=== PATIENT | male | born 1945 | race Caucasian/White ===

== ENCOUNTER 2017-04-15 06:07 | Observation (INO) ==
--- NOTE | 2017-04-15 06:42 | Emergency Department Note ---
Disposition Clinical Impression: Acute electrocardiogram changes Chest pain Qualifiers: Chest pain type: unspecified Qualified Code(s): R07.9 - Chest pain, unspecified Disposition: Admitted As Inpatient Condition: Fair Chest Pain HPI - General Chief Complaint: ED Shortness of Breath/Dyspnea Stated Complaint: CP/SOB Time Seen by Provider: 04/15/17 06:32 Source: patient, family Mode of arrival: private vehicle Limitations: no limitations Vital Signs Reviewed: Yes Nursing Notes Reviewed: Yes - History of Present Illness HPI Narrative: Patient awoke around 5am with L sided chest pressure and shortness of breath. Pain radiates into L shoulder. He took a baby aspirin, but the pain did not improve. He had a similar episode lasting about 30 mins last week, and saw his PCP for this 2 days ago. Per patient, he had an "abnormal" EKG in her office, and is set up to see ticket sorter Dr. Jones tomorrow at 10:10am. He has had a prior stress test around 1995. 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 Acidophilus/Pectin, [place] 1 cap PO DAILY 05/26/16 04/15/17 [Acidophilus Probiotic Capsule] Lisinopril [Zestril] 10 mg PO DAILY 05/26/16 04/15/17 Metformin HCl [Glucophage] 1,000 mg PO BID 05/26/16 04/15/17 Multivitamin [Multi-Day Vitamins] 1 tab PO DAILY 05/26/16 04/15/17 Simvastatin [Zocor] 20 mg PO HS 05/26/16 04/15/17 Cyanocobalamin (Vitamin B-12) 1,000 mcg PO MOWEFR 04/15/17 04/15/17 [Vitamin B12] Glimepiride [Amaryl] 0.5 mg PO BID 04/15/17 04/15/17 Allergies Allergy/AdvReac Type Severity Reaction Status Date / Time No Known Allergies Allergy Verified 11/30/15 04:32 All systems ED: reviewed and negative except as stated. Chest Pain PMH - Past Medical History Medical history: Reports: arthritis, diabetes, GERD, hyperlipidemia, hypertension Surgical history: Reports: cholecystectomy, herniorrhaphy Psychiatric history: Reports: no psych history - Social History Smoking Status: Never smoker Alcohol use: Reports: none Drug use: Reports: none Physical Exam - General Limitations: no limitations General appearance: alert, in no apparent distress - Head Head exam: atraumatic, normocephalic, normal inspection - Eye Eye exam: Present: normal appearance, PERRL, EOMI - Neck Neck exam: Present: normal inspection, full ROM, trachea midline - Respiratory Respiratory exam: Present: normal lung sounds bilaterally. Absent: respiratory distress - Cardiovascular Cardiovascular exam: Present: regular rate, normal rhythm, normal heart sounds - Extremities Exam Extremities exam: Present: normal inspection. Absent: pedal edema - Neurological Exam Neurological exam: Present: alert, oriented X3 - Psychiatric Psychiatric exam: Present: normal affect, normal mood - Skin Skin exam: Present: warm, dry, intact, normal color Course Course Narrative: 0730: New RBBB on EKG, otherwise normal workup. Chest pain now 3/10, improved SOB. Case discussed with on-call ticket sorter Dr. Bocanegra. Patient has an appt with Dr. Joens tomorrow morning, hospital is currently full. Advised to recheck trop in 6-8 hours and consult on-call cardiology at that time. Patient updated. Repeat trop 0.00. Consulted with Dr. Wilks, on-call ticket sorter who recommended admitting the patient. Case discussed with hospitalist, who accepted patient. Vital Signs Temperature 97.7 F 04/15/17 06:08 Pulse Rate 61 04/15/17 06:08 Respiratory Rate 18 04/15/17 06:08 Blood Pressure 168/111 04/15/17 06:08 O2 Sat by Pulse Oximetry 98 04/15/17 06:08 Temperature 97.7 F 04/15/17 06:08 Pulse Rate 61 04/15/17 14:15 Respiratory Rate 18 04/15/17 15:36 Blood Pressure 129/83 04/15/17 15:36 O2 Sat by Pulse Oximetry 96 04/15/17 14:15 Oxygen Delivery Oxygen Delivery Room Air Chest Pain - Lab Data Result diagrams: 04/15/17 06:30 04/15/17 06:30 Lab Results 04/15/17 04/15/17 04/15/17 Range/Units 06:30 06:30 06:30 WBC 6.4 (4.3-11.1) K/mcL RBC 4.37 (4.19-5.50) M/mcL Hgb 14.4 (12.9-16.9) g/dL Hct 41.6 (37.5-50.1) % MCV 95.2 (83.0-100.0) fL MCH 33.0 (28.0-33.3) pg MCHC 34.6 (31.6-35.5) g/dL RDW 12.5 (11.5-14.5) % Plt Count 228 (140-400) K/mcL MPV 9.1 L (9.4-12.4) fL Immature Gran % 0.3 (0-4) % Seg Neutrophils % 48.2 % Lymphocytes % 37.8 % Monocytes % 8.3 % Eosinophils % 4.6 % Basophils % 0.8 % Neutrophils # 3.1 (1.6-8.9) K/mcL Lymphocytes # 2.4 (0.6-4.6) K/mcL Monocytes # 0.5 (0.0-1.3) K/mcL Eosinophils # 0.3 (0.0-0.6) K/mcL Basophils # 0.1 (0.0-0.2) K/mcL PT 11.3 (9.4-12.1) Seconds INR 1.1 APTT 31.3 (26.0-36.0) Seconds Sodium 137 (136-145) mEq/L Potassium 4.3 (3.5-4.5) mEq/L Chloride 105 (98-109) mEq/L Carbon Dioxide 22 (19-29) mEq/L BUN 13 (8-26) mg/dL Creatinine 0.83 (0.72-1.25) mg/dL Est GFR ( Amer) > 60 (> 60) Est GFR (Non-Af Amer) > 60 (> 60) BUN/Creatinine Ratio 16 (6-26) Glucose 160 H (70-99) mg/dL POC Glucose (58-89) Calculated Osmolality 288 (280-300) Calcium 9.3 (8.6-10.8) mg/dL Troponin I (0-0.03) ng/mL B-Natriuretic Peptide (0-100) pg/mL 04/15/17 04/15/17 04/15/17 Range/Units 06:30 06:30 12:37 WBC (4.3-11.1) K/mcL RBC (4.19-5.50) M/mcL Hgb (12.9-16.9) g/dL Hct (37.5-50.1) % MCV (83.0-100.0) fL MCH (28.0-33.3) pg MCHC (31.6-35.5) g/dL RDW (11.5-14.5) % Plt Count (140-400) K/mcL MPV (9.4-12.4) fL Immature Gran % (0-4) % Seg Neutrophils % % Lymphocytes % % Monocytes % % Eosinophils % % Basophils % % Neutrophils # (1.6-8.9) K/mcL Lymphocytes # (0.6-4.6) K/mcL Monocytes # (0.0-1.3) K/mcL Eosinophils # (0.0-0.6) K/mcL Basophils # (0.0-0.2) K/mcL PT (9.4-12.1) Seconds INR APTT (26.0-36.0) Seconds Sodium (136-145) mEq/L Potassium (3.5-4.5) mEq/L Chloride (98-109) mEq/L Carbon Dioxide (19-29) mEq/L BUN (8-26) mg/dL Creatinine (0.72-1.25) mg/dL Est GFR ( Amer) (> 60) Est GFR (Non-Af Amer) (> 60) BUN/Creatinine Ratio (6-26) Glucose (70-99) mg/dL POC Glucose (58-89) Calculated Osmolality (280-300) Calcium (8.6-10.8) mg/dL Troponin I 0.00 0.00 (0-0.03) ng/mL B-Natriuretic Peptide < 10 (0-100) pg/mL 04/15/17 Range/Units 14:27 WBC (4.3-11.1) K/mcL RBC (4.19-5.50) M/mcL Hgb (12.9-16.9) g/dL Hct (37.5-50.1) % MCV (83.0-100.0) fL MCH (28.0-33.3) pg MCHC (31.6-35.5) g/dL RDW (11.5-14.5) % Plt Count (140-400) K/mcL MPV (9.4-12.4) fL Immature Gran % (0-4) % Seg Neutrophils % % Lymphocytes % % Monocytes % % Eosinophils % % Basophils % % Neutrophils # (1.6-8.9) K/mcL Lymphocytes # (0.6-4.6) K/mcL Monocytes # (0.0-1.3) K/mcL Eosinophils # (0.0-0.6) K/mcL Basophils # (0.0-0.2) K/mcL PT (9.4-12.1) Seconds INR APTT (26.0-36.0) Seconds Sodium (136-145) mEq/L Potassium (3.5-4.5) mEq/L Chloride (98-109) mEq/L Carbon Dioxide (19-29) mEq/L BUN (8-26) mg/dL Creatinine (0.72-1.25) mg/dL Est GFR ( Amer) (> 60) Est GFR (Non-Af Amer) (> 60) BUN/Creatinine Ratio (6-26) Glucose (70-99) mg/dL POC Glucose 160 H (58-89) Calculated Osmolality (280-300) Calcium (8.6-10.8) mg/dL Troponin I (0-0.03) ng/mL B-Natriuretic Peptide (0-100) pg/mL - EKG Data EKG shows normal: sinus rhythm Rate: normal (62) Rhythm: NSR Bag[place]/QRS: RBBB When compared to previous EKG there are: changes noted
[2017-04-15 06:52] LABS: Basophils # 0.1 K/mcL (0.0-0.2); Basophils % 0.8 %; Eosinophils # 0.3 K/mcL (0.0-0.6); Eosinophils % 4.6 %; Hematocrit 41.6 % (37.5-50.1); Hemoglobin 14.4 g/dL (12.9-16.9); Immature Granulocytes % 0.3 % (0-4); Lymphocytes # 2.4 K/mcL (0.6-4.6); Lymphocytes % 37.8 %; Mean Corpuscular HGB Conc 34.6 g/dL (31.6-35.5); Mean Corpuscular Volume 95.2 fL (83.0-100.0); Mean Platelet Volume 9.1 fL (9.4-12.4); Monocytes # 0.5 K/mcL (0.0-1.3); Monocytes % 8.3 %; Neutrophils # 3.1 K/mcL (1.6-8.9); Platelet Count 228 K/mcL (140-400); Red Blood Count 4.37 M/mcL (4.19-5.50); Red Cell Distribution Width 12.5 % (11.5-14.5); Segmented Neutrophils % 48.2 %
[2017-04-15] MEDS ORDERED: Aspirin 81 MG TAB.CHEW PO ONE (06:53)
[2017-04-15 06:58] LABS: INR 1.1; Prothrombin Time 11.3 Seconds (9.4-12.1)
[2017-04-15 07:01] LABS: Activated Partial Thrombo Time 31.3 Seconds (26.0-36.0)
[2017-04-15 07:08] LABS: BUN/Creatinine Ratio 16 (6-26); Blood Urea Nitrogen 13 mg/dL (8-26); Calcium 9.3 mg/dL (8.6-10.8); Carbon Dioxide 22 mEq/L (19-29); Chloride 105 mEq/L (98-109); Glucose 160 mg/dL (70-99); Osmolality,Calculated 288 (280-300); Potassium 4.3 mEq/L (3.5-4.5); Sodium 137 mEq/L (136-145); eGFR For African Americans > 60 (> 60); eGFR For Non-African Americans > 60 (> 60)
--- NOTE | 2017-04-15 13:30 | Emergency Department Note ---
START Narrative - START START: For this encounter, I have reviewed the PRINTING PRESS OPERATOR or PA documentation, treatment plan, and medical decision making; and I have had face to face time with this patient. 71yo M here for chest pain. supposed to see cardiology tomorrow. presents to ER for chest pain overnight. cardiology has been consulted. pt was supposed to see them tomorrow but they would prefer pt to be admitted now due to ekg and story. pt ok with this plan asa given vss
[2017-04-15] MEDS ORDERED: *HR* HYDROcodone/Acet 5/325 mg TABLET PO PRN (17:08)
[2017-04-15] MEDS ORDERED: Naloxone 0.4 MG/ML INJ IVP PRN (17:08)
[2017-04-15] MEDS ORDERED: Acetaminophen 325 MG TABLET PO PRN (17:08)
[2017-04-15] MEDS ORDERED: Ondansetron 4 MG/2 ML VIAL IVP PRN (17:08)
[2017-04-15] MEDS ORDERED: *HR* Morphine 2 MG/ML SYRINGE IVP PRN (17:08)
[2017-04-15] MEDS ORDERED: Cyanocobalamin (B-12) 1,000 MCG TABLET PO SCH (17:15)
--- NOTE | 2017-04-15 17:28 | Internal Med History&Physical ---
<Chris Strong R - Last Filed: 04/15/17 18:42> Date of Encounter: 04/15/17 Internal Medicine - H&P: HPI History of present illness: Mr. Patterson is a 71 year old male Internal Medicine - H&P: Meds Aspirin 81 mg PO DAILY 05/26/16 [History] Cholecalciferol (D-3) [Vitamin D] 5,000 unit PO DAILY 05/26/16 [History] L. Acidophilus/Pectin, [place] [Acidophilus Probiotic Capsule] 1 cap PO DAILY [History] Lisinopril [Zestril] 10 mg PO DAILY 05/26/16 [History] Metformin HCl [Glucophage] 1,000 mg PO BID 05/26/16 [History] Multivitamin [Multi-Day Vitamins] 1 tab PO DAILY 05/26/16 [History] Simvastatin [Zocor] 20 mg PO HS 05/26/16 [History] Cyanocobalamin (Vitamin B-12) [Vitamin B12] 1,000 mcg PO MOWEFR 04/15/17 [ History] Glimepiride [Amaryl] 0.5 mg PO BID 04/15/17 [History] 3 Allergy/AdvReac Type Severity Reaction Status Date / Time No Known Allergies Allergy Verified 11/30/15 04:32 All Systems PM: A 10-system review of systems was performed and is negative for pertinent findings except as documented above in the HPI. - Constitutional Vitals: Temp Pulse Resp BP Pulse Ox 97.7 F 61 18 129/83 96 04/15/17 06:08 04/15/17 14:15 04/15/17 15:36 04/15/17 15:36 04/15/17 14:15 Internal Med - H&P Results - Labs CBC & Chem 7: 04/15/17 06:30 04/15/17 06:30 - Attending Attestation I personally interviewed and examined this pt. I agree with the findings, assessment ad plan of HARIS Mckeon. Pt currently pain free. Continue to trend trops. Cardiology eval pending. I discussed the case with pt and family at bedside. <Junito Mckeon - Last Filed: 04/16/17 10:21> Date of Encounter: 04/16/17 Time of Encounter: 16:00 Assessment and Plan (1) Chest pain Current visit: Yes Status: Acute Patient presents with chest pain that he reports began last as a chest tightness. Patient was then seen by PCP and had EKG done which they ruled as abnormal. Patient presented to the ED today when pain became worse and presented as pressure across his chest that radiated to his left shoulder. Patient states he has never had this before. Patient was to see Dr. Jones in cardiology tomorrow. He reports his last stress test was in 1995. Patient's EKG today shows sinus rhythm with right bundle branch block and left anterior fascicular block. Initial troponin 0.00. Patient's current risk factors include diabetes, HLD, and HTN. Echocardiogram ordered. Patient to be placed on continuous cardiac telemetry with troponins to be trended x2. Nitroglycerin SL PRN. Will continue aspirin therapy, HTN, and HLD medications. Patient not currently anticoagulated with exception of aspirin. Cardiology consult ordered and discussed with Dr. Gagnon. Patient to be monitored closely for increasing cardiac and/or respiratory distress. Qualifiers: Chest pain type: other chest pain Qualified Code(s): R07.89 - Other chest pain; R07.8 - Other chest pain (2) SOB (shortness of breath) Current visit: Yes Status: Acute Patient presents with reported acute shortness of breath associated with chest pain. Patient denies any use of oxygen and states that SOB is transient. Patient placed on supplemental O2 with titration if SPO2 less than 92% and continuous SPO2 monitoring. (3) Diabetes Current visit: Yes Status: Chronic Patient presents with history of chronic diabetes controlled by oral anti- hyperglycemic medications. Will hold patient's oral medications and administer low-dose correction insulin sliding scale with hypoglycemia protocol. Blood glucose monitoring ACHS. A1c ordered. Qualifiers: Diabetes mellitus type: type 2 Diabetes mellitus complication status: without complication Diabetes mellitus residential insulin use: without residential use Qualified Code(s): E11.9 - Type 2 diabetes mellitus without complications (4) GERD (gastroesophageal reflux disease) Current visit: Yes Status: Chronic Patient presents with history of chronic GERD. IVP Zofran Q6 PRN and IVP 40 mg daily ordered. Qualifiers: Esophagitis presence: esophagitis presence not specified Qualified Code(s) : K21.9 - Gastro-esophageal reflux disease without esophagitis (5) HLD (hyperlipidemia) Current visit: Yes Status: Chronic Patient presents with history of chronic hyperlipidemia. Lipid panel ordered and we will continue patient's Zocor. Qualifiers: Hyperlipidemia type: pure hypercholesterolemia Qualified Code(s): E78.00 - Pure hypercholesterolemia, unspecified; E78.0 - Pure hypercholesterolemia (6) HTN (hypertension) Current visit: Yes Status: Chronic Patient presents with history of chronic hypertension. Will monitor patient's vital signs and continue patient's lisinopril. Qualifiers: Hypertension type: essential hypertension Qualified Code(s): I10 - Essential (primary) hypertension (7) DVT prophylaxis Current visit: Yes Status: Acute Patient to be placed on DVT prophylaxis due to current admission protocol and bed rest status. Heparin 5,000 units SQ Q8 ordered. Internal Medicine - H&P: HPI Chief complaint: Chest pain Admitted From: Emergency Dept Plans for Post Hospital Care: Home History of present illness: Mr. Patterson is a 71 year old male with medical history of arthritis, diabetes controlled by oral antihyperglycemic medications, GERD, hyperlipidemia, and hypertension presents from the ED with chief complaint of chest pain and shortness of breath that began last . Patient describes pain as chest tightness across his chest. Patient was seen by PCP on Thursday and given an EKG which was ruled as abnormal. Patient was due to see cardiology tomorrow but presented to ED today due to increasing chest pain. Patient reports pain radiates to left shoulder. Patient reports this has never happened before and he denies previous cardiac events. Mr. Patterson reports he was a former smoker smoking 1 pack per day but quit 47 years ago. On admission to ED today patient' s vital signs included temperature of 97.7F, heart rate of 61 bpm, respiratory rate of 18, BP of 168/111, SPO2 of 98% on room air. Patient's abnormal labs from initial blood draw include glucose of 160. Initial troponin 0.00. Patient was not given nitroglycerin in ED but aspirin instead. On examination, patient reports mild chest pain with shortness of breath but denies recent illness, nausea, vomiting, diarrhea, fever, chills, abdominal pain, unusual bleeding, changes in vision, dizziness, lightheadedness, presyncope, or syncope. Patient states that he had a previous stress test in 1995. Patient is hemodynamically stable reports no acute distress. Information taken from patient, chart review, and previous medical records and imaging. Time spent with patient greater than 40 minutes. Past Med Surg Social Fam HX - Past Medical History Source: patient Medical history: arthritis, diabetes, GERD, hyperlipidemia, hypertension Psychiatric history: no psych history - Past Surgical History Surgical History: cholecystectomy, herniorrhaphy, orthopedic, other - Social History Smoking Status: Former smoker Packs per day: 1 PPD - Reports quitting 47 years ago Smokeless Tobacco Status: No Alcohol use: none Drug use: none Current living situation: Home, With Family Activity Level: Independent ambulation Recent Out of Country Travel Within the Last 8 Weeks: No Exposure or Possible Exposure to Illness During Travel: No - Family History Father Race: Family Member Ethnicity: Non- Living Status: Age at : 86 Cause of : [place] Hx Family Cardiac Disorders: Yes ([place], HD) Mother Race: Family Member Ethnicity: Non- Living Status: Age at : 74 Cause of : CVA Hx Family Cardiac Disorders: Yes (Stroke, HTN) Hx Family Neurologic Disorders: Yes (CVA) Brother Race: Family Member Ethnicity: Non- Living Status: Still Living Hx Family Endocrine Disorder: Yes (DM) All Systems PM: A 10-system review of systems was performed and is negative for pertinent findings except as documented above in the HPI. - Constitutional Constitutional: no chills, no fever(s), no night sweats - EENT Eyes: no change in vision, no discharge, no pain, no photophobia Ears: no ear discharge, no ear pain, no tinnitus Nose, mouth and throat: no dysphagia, no nasal discharge, no neck pain, no sore throat - Breasts Breasts: as per HPI - Cardiovascular Cardiovascular ROS IM: as per HPI, chest pain, dyspnea - Respiratory Respiratory: as per HPI, dyspnea - Gastrointestinal Gastrointestinal: no abdominal pain, no diarrhea, no hematemesis, no hematochezia, no melena, no nausea, no vomiting - Genitourinary Genitourinary ROS male: as per HPI - Musculoskeletal Musculoskeletal ROS IM: no numbness, no tingling - Integumentary Integumentary IM: no rash, no unusual bruising - Neurological Neurological ROS: no confusion, no convulsions, no focal weakness, no numbness, no tingling, no tremor(s) - Psychiatric Psychiatric: as per HPI - Endocrine Endocrine IM: as per HPI - Hematologic/Lymphatic Hematologic/Lymphatic: no easy bruising - Allergic/Immunologic Allergic/Immunologic: as per HPI - Constitutional Vitals: Temp Pulse Resp BP Pulse Ox 97.7 F 61 18 129/83 96 04/15/17 06:08 04/15/17 14:15 04/15/17 15:36 04/15/17 15:36 04/15/17 14:15 General appearance: Present: cooperative, A&O X 3, pleasant, no acute distress, obese, answers questions appropriately - Head Head exam: Present: atraumatic, normocephalic - Eye Eye exam: Present: PERRL, conjuntiva pink, sclera anicteric Pupils: Present: PERRL - ENT ENT exam: Present: normal exam, normal external ear exam - Neck Neck exam general surgery: Present: supple, trachea midline. Absent: lymphadenopathy - Respiratory Respiratory exam: Present: CTAB. Absent: accessory muscle use, rales, rhonchi, wheezes - Cardiovascular Cardiovascular exam: Present: RRR, +S1, +S2. Absent: diastolic murmur, gallop, rubs, systolic murmur - GI/Abdominal GI/Abdominal exam: Present: normal bowel sounds, soft, no peritoneal signs. Absent: distended, tenderness - Rectal Rectal exam: Present: deferred - Additional comments: exam deferred. - Extremities Exam Extremities exam: Present: warm, radial pulses palpable and symmetrical. Absent : calf tenderness, cyanotic, pedal edema - Back Exam Back exam: Present: normal inspection - Neurological Exam Neurological exam: Present: CN II-XII intact, oriented X3, no focal deficits. Absent: pronater drift, facial droop, speech deficit - Psychiatric Psychiatric exam: Present: normal affect, normal mood - Skin Skin exam: Present: dry, intact Internal Med - H&P Results - Labs CBC & Chem 7: 04/16/17 03:30 04/16/17 03:00 - EKG Data EKG shows normal: sinus rhythm - EKG Data Prior EKG available for review: yes EKG comments: 04/15/17 17:35 EKG dated 11/29/16 shows sinus rhythm with marked left axis deviation. EKG dated 04/15/17 shows sinus rhythm with right bundle branch block and left anterior fascicular block. - Diagnostic Studies Chest x-ray Additional comments: Impressions Chest X-Ray 04/15/17 06:34 IMPRESSION: Similar appearing chest without acute cardiopulmonary process. D/ / Irvin aMrtinez MD / Irvin Martinez MD Interpreting Provider: Irvin Martinez MD
[2017-04-15] MEDS: Pantoprazole 40 MG VIAL IVP SCH (17:41)
[2017-04-15] MEDS ORDERED: *HR* Dextrose 50 % in Water (Syg) 50 ML SYRINGE IVP PRN (17:49)
[2017-04-15] MEDS ORDERED: D5% in Water 1,000 ML IVC PRN (17:49)
[2017-04-15] MEDS ORDERED: Dextrose Gel 15 GM PO PRN ×2 (17:49)
[2017-04-15] MEDS ORDERED: Insulin LISPRO 300 UNITS/3 ML VIAL SQ SCH (21:00)
[2017-04-15] MEDS: *HR* Heparin 5,000 UNIT/ML VIAL SQ SCH (21:43)
[2017-04-16 03:46] LABS: INR 1.1
[2017-04-16 03:48] LABS: Activated Partial Thrombo Time 31.8 Seconds (26.0-36.0)
[2017-04-16 04:00] LABS: Basophils # 0.1 K/mcL (0.0-0.2); Basophils % 0.7 %; Eosinophils # 0.4 K/mcL (0.0-0.6); Eosinophils % 5.9 %; Hematocrit 40.8 % (37.5-50.1); Immature Granulocytes % 0.3 % (0-4); Immature Platelets 2.2 % (1.1-6.1); Lymphocytes # 2.6 K/mcL (0.6-4.6); Mean Corpuscular HGB Conc 34.3 g/dL (31.6-35.5); Mean Corpuscular Hemoglobin 33.5 pg (28.0-33.3); Mean Corpuscular Volume 97.6 fL (83.0-100.0); Mean Platelet Volume 9.5 fL (9.4-12.4); Monocytes # 0.6 K/mcL (0.0-1.3); Monocytes % 8.6 %; Neutrophils # 3.1 K/mcL (1.6-8.9); Platelet Count 239 K/mcL (140-400); Red Blood Count 4.18 M/mcL (4.19-5.50); Red Cell Distribution Width 12.8 % (11.5-14.5); Segmented Neutrophils % 46.5 %
[2017-04-16 04:26] LABS: Alanine Aminotransferase 29 Units/L (0-55); Albumin 3.5 g/dL (3.5-5.0); Albumin/Globulin Ratio 1.1 (1.1-2.2); Alkaline Phosphatase 65 Units/L (38-126); Aspartate Amino Transferase 21 Units/L (5-34); BUN/Creatinine Ratio 15 (6-26); Bilirubin,Total 0.6 mg/dL (0.2-1.2); Blood Urea Nitrogen 12 mg/dL (8-26); Calcium 9.2 mg/dL (8.6-10.8); Carbon Dioxide 26 mEq/L (19-29); Chloride 105 mEq/L (98-109); Chol/HDL Ratio 5.8 (0-4.9); Cholesterol 151 mg/dL (< 200); Globulin 3.1 g/dL (2.4-3.5); Glucose 130 mg/dL (70-99); HDL Cholesterol 26 mg/dL (40-59); LDL Cholesterol,Calculated 73 mg/dL (0-99); Osmolality,Calculated 288 (280-300); Potassium 4.1 mEq/L (3.5-4.5); Sodium 138 mEq/L (136-145); Total Protein 6.6 g/dL (6.0-8.3); Triglycerides 260 mg/dL (< 150); eGFR For African Americans > 60 (> 60); eGFR For Non-African Americans > 60 (> 60)
[2017-04-16] MEDS: *HR* Heparin 5,000 UNIT/ML VIAL SQ SCH (05:26)
[2017-04-16 07:07] VITALS: BP 136/83
[2017-04-16] MEDS ORDERED: Cholecalciferol (D-3) 1,000 UNIT TABLET PO SCH (09:00)
[2017-04-16] MEDS ORDERED: Multivit/Ca/Min/Fe/FA 1 TAB TABLET PO SCH (09:00)
[2017-04-16] MEDS ORDERED: Lactobacillus 1 EACH CAP.SPRINK PO SCH (09:00)
[2017-04-16] MEDS ORDERED: Aspirin 81 MG TAB.CHEW PO SCH (09:00)
[2017-04-16 09:02] LABS: Hemoglobin A1C 7.2 %
[2017-04-16] MEDS: Insulin LISPRO 300 UNITS/3 ML VIAL SQ SCH ×2 (09:05→12:27)
[2017-04-16] MEDS ORDERED: Regadenoson 0.4 MG/5 ML SYRINGE IVP ONE (09:45)
[2017-04-16] MEDS: Pantoprazole 40 MG VIAL IVP SCH (13:16)
--- NOTE | 2017-04-16 13:35 | Nuclear Medicine Stress Report ---
Regadenoson Nuclear Stress Name: Irvin Patterson Date of Study: 04/16/2017 Date: 1945 Ht: 76.0 in Medical Record#: [id number] Age: 71 Wt: 220.0 lb Gender: Male Order #: [id number] Location: [facility] Room: [facility] Supervising Provider: Himanshu Long CNP Reading Physician: Jj Bocanegra MD, [facility] Ordering Physician: Gabriela Graham CNP Primary Care Physician: Sumeet Hollins DO Stress Technologist: Ruth Bain FREELANCE ART DIRECTOR, CCT Aircraft Refueller: Mundo Rodriguez Indications: Abnormal ECG, Chest Pain Impression: The patient demonstrated a hypotensive blood pressure response to regadenoson. Baseline BP 118/72. BP decreased to 88/52. BP increased to 108/60 in recovery. Mild LV systolic dysfunction. Gated LVEF = 48%. Perfusion imaging was negative for ischemia or infarct. History: Hypertension Diabetes Stress Test Summary: Stress Test Type: Pharmacologic Regadenoson 0.4mg/5ml given IV Baseline Information: Initial Heart Rate: 66 Blood Pressure: 118/72 Stress Information: Test Terminated Due to (primary): As per protocol Maximum Blood Pressure: 90/60 Maximum Heart Rate: 87 Percent Maximum Heart Rate Achieved: 59 Double Product: 7830 Symptoms: No chest symptoms Nuclear Summary: SPECT myocardial perfusion imaging using Tc99m Sestamibi given intravenously was performed at rest and following cardiac stress testing. The resting images were obtained following initial dose of 11.2 mCi. Following stress an additional dose of 32.0 mCi was given at peak exercise or 30 seconds post regadenoson infusion. Findings: Stress Note * Resting ECG demonstrated sinus rhythm, RBBB, LAFB. * No baseline arrhythmias were noted. * Patient had no chest pain during stress. * No arrhythmias were noted during stress. * No significant ECG changes with regadenoson. Hemodynamic responses * The patient demonstrated a hypotensive blood pressure response to regadenoson. Baseline BP 118/72. BP decreased to 88/52. BP increased to 108/60 in recovery. Study Quality * Study quality is average. Gated EF % * Mild LV systolic dysfunction. Gated LVEF = 48%. Left Ventricle * The left ventricle is not dilated. * Normal Segmental Perfusion in rest. * Normal segmental perfusion in stress. TID * No evidence of transient ischemic dilatation. Updated by Jj Bocanegra MD, FACC on 04/16/2017 1:30:35 PM electronically signed on 04/16/2017 1:31:40 PM with status of Final
--- NOTE | 2017-04-16 14:01 | Discharge Summary ---
Date of Encounter: 04/16/17 Time of Encounter: 09:05 - Discharge Diagnosis (1) Chest pain Priority: Primary Status: Acute Comments: Pt reports chest pain and SOB x 1 week. he deneis chest pain currently. Pain is not reproducible with movement, deep inspiration, or palpation. Stress test is negative for ischemia or infarct. Echo normal LV systolic function, LVEF 55%. Mild left ventricular diastolic dysfunction. Normal right ventricular size and function. No significant valvular dysfunction. No evidence of pulmonary hypertension. Aneurysmal interatrial septum. No evidence of intracardiac shunting with agitated saline contrast. Pt denies chest pain at this time. He was to see cardiology today, will follow up in the office. Qualifiers: Chest pain type: other chest pain Qualified Code(s): R07.89 - Other chest pain; R07.8 - Other chest pain (2) SOB (shortness of breath) Priority: Secondary Status: Acute Comments: Plan as above. (3) Diabetes Priority: Secondary Status: Chronic Comments: a1c 7.2. Continue home medications and accuchecks. Qualifiers: Diabetes mellitus type: type 2 Diabetes mellitus complication status: without complication Diabetes mellitus intermodal dispatcher insulin use: without chcf use Qualified Code(s): E11.9 - Type 2 diabetes mellitus without complications (4) GERD (gastroesophageal reflux disease) Priority: Secondary Status: Suspected Comments: Prior history of GERD . Pt states that since his cholecystectomy, he has not had any problems and has not taken medication. Pt reports that chest pain also encompassed his upper abd and states that prior to the episode that awakened him at 0400, he had eaten pizza the night before. Will start pt on Omeprazole 20mg po daily. Encourage pt to follow up with cardiology still. Qualifiers: Esophagitis presence: esophagitis presence not specified Qualified Code(s) : K21.9 - Gastro-esophageal reflux disease without esophagitis (5) HLD (hyperlipidemia) Priority: Secondary Status: Chronic Comments: Cholesterol WNL, triglycerides elevated. Increase statin t0 40mg po qhs. Qualifiers: Hyperlipidemia type: pure hypercholesterolemia Qualified Code(s): E78.00 - Pure hypercholesterolemia, unspecified; E78.0 - Pure hypercholesterolemia (6) HTN (hypertension) Priority: Secondary Status: Chronic Comments: well controlled in inpatient setting. Continue home medications. Qualifiers: Hypertension type: essential hypertension Qualified Code(s): I10 - Essential (primary) hypertension (7) DVT prophylaxis Priority: Secondary Status: Acute Comments: Heparin SQ daily. Pt is ambulatory in room. - Discharge Medications Prescriptions: Omeprazole 20 mg PO DAILY #30 tablet. Simvastatin [Zocor] 40 mg PO HS #30 tablet Home Medications: Aspirin 81 mg PO DAILY 05/26/16 [History] Cholecalciferol (D-3) [Vitamin D] 5,000 unit PO DAILY 05/26/16 [History] L. Acidophilus/Pectin, [place] [Acidophilus Probiotic Capsule] 1 cap PO DAILY [History] Lisinopril [Zestril] 10 mg PO DAILY 05/26/16 [History] Metformin HCl [Glucophage] 1,000 mg PO BID 05/26/16 [History] Multivitamin [Multi-Day Vitamins] 1 tab PO DAILY 05/26/16 [History] Cyanocobalamin (Vitamin B-12) [Vitamin B12] 1,000 mcg PO MOWEFR 04/15/17 [ History] Glimepiride [Amaryl] 0.5 mg PO BID 04/15/17 [History] Omeprazole 20 mg PO DAILY #30 tablet. 04/16/17 [Rx] Simvastatin [Zocor] 40 mg PO HS #30 tablet 04/16/17 [Rx] Allergies/Adverse Reactions: 3 Allergy/AdvReac Type Severity Reaction Status Date / Time No Known Allergies Allergy Verified 11/30/15 04:32 Procedures/tests Complete & Pending: Procedures Performed prior 72 hours Category Date Time Status NM jin perf SPECT multi [NM] Routine Exams 04/16/17 08:17 Taken EV echocardiogram Routine Y 04/15/17 17:11 Completed SP pharm nuclear stress Routine Y 04/16/17 08:17 Completed Date of admission: 04/15/17 15:20 Primary care physician: Sumeet Hollins DO Discharging clinician: Gabriela Graham Anticipated date of discharge: 04/16/17 - Patient Status Disposition: Home, Self-Care Condition: Good Functional capacity at discharge: independent ambulation Overall status at discharge: patient is back to baseline - Discharge Instructions Follow Up With: Sumeet Hollins DO [Primary Care Provider] - 04/28/17 4:15 pm Additional Instructions: Follow up with your PCP in the next 7-10 days for a follow up visit. Return to the ER as needed for any other problems or concerns or if your symptoms return or worsen. Follow up with cardiology as scheduled. Resume your normal home medications and resume your normal activities as tolerated. - Diet and Activity Activity: increase activity as tolerated Diet: advance to your usual diet Hospital course: Mr. Patterson is a 71 year old male with past medical history of GERD, hyperlipidemia, hypertension, diabetesz reports chest pain or shortness of breath 1 week. States he was at his primary care provider's 3 days ago, was found to have an abnormal EKG and referred to cardiology. His appointment with cardiology was today. Yesterday morning he awakened at 4 AM with chest tightness and shortness of breath. He also states that he had another episode that started while riding a lawnmower. He reports some chest pressure and upper abdominal pressure with radiation to left shoulder. He says it felt like someone was sitting on the top of his abdomen in middle of his chest. He denies diaphoresis or nausea. He does have a history of GERD has not taken any medication since his cholecystectomy. Patient's troponin were negative 3. Chest x-ray was negative. Triglycerides remain significantly elevated, simvastatin has not been increased to 40 mg at bedtime. Patient's A1c is 5.8. Stress test was negative for ischemia or infarct, he did have a hypotensive episode with the administration of the Regodenoson, but recovered without intervention. Stress test also showed mild LV systolic dysfunction and a gated EF of 48%. Echo showed normal LV systolic function with an EF of 55%, mild LV DD, no significant valvular dysfunction. 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 Patient denies chest pain currently. The pain is not reproducible with palpation, movement, or deep inspiration. He denies nausea, shortness of breath , dizziness, headache, blurred vision, abdominal pain, or peripheral edema. He also denies SOB. We discussed the possibility that the pain could have been GERD symptoms and he is agreeable to starting Omeprazole and following with PCP and cards. Pt's labs are WNL and vitals are stable. Pt is ready for discharge. - Time Spent with Patient Total time spent providing and/or coordinating discharge services: Less than 30 minutes - Constitutional Vitals: Temp Pulse Resp BP Pulse Ox 97.7 F 63 16 136/83 96 04/16/17 07:00 04/16/17 07:00 04/16/17 07:00 04/16/17 07:00 04/16/17 07:00 General appearance: Present: cooperative, A&O X 3, pleasant, no acute distress, obese, answers questions appropriately - Head Head exam: Present: atraumatic, normal inspection, normocephalic - Eye Eye exam: Present: normal appearance, conjuntiva pink, sclera anicteric - Neck Neck exam general surgery: Present: supple, trachea midline. Absent: lymphadenopathy, tenderness - Respiratory Respiratory exam: Present: CTAB. Absent: accessory muscle use, chest wall tenderness, rales, rhonchi, wheezes - Cardiovascular Cardiovascular exam: Present: RRR, +S1, +S2. Absent: diastolic murmur, gallop, rubs, systolic murmur - GI/Abdominal GI/Abdominal exam: Present: normal bowel sounds, soft, no peritoneal signs. Absent: distended, hernia, hepatomegaly, tenderness - Extremities Exam Extremities exam: Present: warm, radial pulses palpable and symmetrical. Absent : calf tenderness, cyanotic, pedal edema, tenderness - Neurological Exam Neurological exam: Present: alert, oriented X3, no focal deficits. Absent: facial droop, speech deficit - Skin Skin exam: Present: dry, intact, normal color, warm. Absent: rash
== END 2017-04-16 14:57 | disposition home or self-care (01) ==
LOC: 3BNU 06:07 → EMEROO 06:07 → 3BNU 15:42
PROVIDERS: ADMIT Registered Nurse; ATTEND Registered Nurse

== ENCOUNTER 2019-10-05 17:31 | Observation (INO) ==
[2019-10-05] MEDS ORDERED: *HR* Promethazine 25 MG/ML VIAL IVP ONE (17:35)
[2019-10-05] MEDS ORDERED: 0.9 % Sodium Chloride 1,000 ML IVC ONE ×2 (17:35→19:08)
[2019-10-05 18:58] LABS: Basophils # 0.1 K/mcL (0.0-0.2); Basophils % 0.4 %; Eosinophils # 0.2 K/mcL (0.0-0.6); Eosinophils % 1.2 %; Hemoglobin 14.7 g/dL (12.9-16.9); Immature Granulocytes % 0.2 % (0-4); Lymphocytes # 0.4 K/mcL (0.6-4.6); Lymphocytes % 2.9 %; Mean Corpuscular HGB Conc 32.7 g/dL (31.6-35.5); Mean Corpuscular Hemoglobin 33.1 pg (28.0-33.3); Mean Corpuscular Volume 101.4 fL (83.0-100.0); Mean Platelet Volume 9.4 fL (9.4-12.4); Monocytes # 0.6 K/mcL (0.0-1.3); Monocytes % 4.6 %; Neutrophils # 12.1 K/mcL (1.6-8.9); Platelet Count 216 K/mcL (140-400); Red Blood Count 4.44 M/mcL (4.19-5.50); Red Cell Distribution Width 12.7 % (11.5-14.5); Segmented Neutrophils % 90.7 %; White Blood Count 13.4 K/mcL (4.3-11.1)
[2019-10-05 19:51] LABS: Alanine Aminotransferase 25 Units/L (7-52); Albumin/Globulin Ratio 1.7 (1.1-2.2); Alkaline Phosphatase 67 Units/L (34-104); Aspartate Amino Transferase 20 Units/L (13-39); BUN/Creatinine Ratio 20 (6-26); Bilirubin,Direct 0.2 mg/dL (0.0-0.2); Bilirubin,Indirect 0.5 mg/dL (0.0-1.0); Bilirubin,Total 0.7 mg/dL (0.3-1.0); Blood Urea Nitrogen 15 mg/dL (8-23); Calcium 8.3 mg/dL (8.6-10.3); Carbon Dioxide 25 mEq/L (23-29); Chloride 106 mEq/L (98-107); Globulin 2.3 g/dL (2.4-3.5); Glucose 199 mg/dL (70-105); Lipase 29 Units/L (11-82); Osmolality,Calculated 292 (280-300); Potassium 4.3 mEq/L (3.5-5.1); Sodium 138 mEq/L (136-145); Total Protein 6.3 g/dL (6.4-8.9); Troponin I < 0.03 ng/mL (< 0.04); eGFR For African Americans > 60 (> 60); eGFR For Non-African Americans > 60 (> 60)
[2019-10-05 20:38] LABS: Bilirubin,Urine Negative (Negative); Blood,Urine Negative (Negative); Clarity,Urine Clear (Clear); Color,Urine Yellow (Yellow); Glucose,Urine (UA) 100 mg/dL (Normal); Ketones,Urine 40 mg/dL (Negative); Leukocyte Esterase,Urine Negative (Negative); Nitrite,Urine Negative (Negative); PH,Urine 5.5 pH Units (5.0-8.0); Protein,Urine Trace mg/dL (Neg-Trace); Specific Gravity,Urine 1.022 (1.010-1.025); Urobilinogen,Urine Normal (Normal)
[2019-10-05] MEDS ORDERED: Calcium Gluconate 1gm/50mL 1 GM/50 ML BAG IVPB ONE (21:35)
[2019-10-05] MEDS ORDERED: D5% in Water 1,000 ML IVC PRN (21:36)
[2019-10-05] MEDS ORDERED: Dextrose Gel 15 GM/37.5 ML TUBE PO PRN ×2 (21:36)
[2019-10-05] MEDS ORDERED: *HR* Dextrose 50 % in Water (Syg) 50 ML SYRINGE IVP PRN (21:36)
[2019-10-05] MEDS ORDERED: Naloxone 0.4 MG/ML INJ IVP PRN (21:36)
[2019-10-05] MEDS ORDERED: levoFLOXacin 750 MG/150 ML 750 MG/150 ML BAG IVPB SCH (22:00)
[2019-10-05] MEDS: Ringers Solution, Lactated 1,000 ML IVC SCH (22:51)
[2019-10-06] MEDS: MetroNIDAZOLE 500 MG/100 ML 500 MG/100 ML BAG IVPB SCH ×2 (00:04→05:16)
[2019-10-06] MEDS: Insulin LISPRO 300 UNITS/3 ML VIAL SQ SCH ×3 (02:08→12:10)
[2019-10-06] MEDS ORDERED: Acetaminophen 325 MG TABLET PO PRN (05:01)
[2019-10-06] MEDS: Ringers Solution, Lactated 1,000 ML IVC SCH (06:30)
[2019-10-06 07:15] LABS: INR 1.2
[2019-10-06 07:16] LABS: Basophils % 0.3 %; Eosinophils # 0.1 K/mcL (0.0-0.6); Eosinophils % 1.1 %; Hematocrit 40.6 % (37.5-50.1); Hemoglobin 13.3 g/dL (12.9-16.9); Immature Granulocytes % 0.5 % (0-4); Lymphocytes # 0.9 K/mcL (0.6-4.6); Lymphocytes % 9.9 %; Mean Corpuscular HGB Conc 32.8 g/dL (31.6-35.5); Mean Corpuscular Hemoglobin 32.8 pg (28.0-33.3); Mean Platelet Volume 9.7 fL (9.4-12.4); Monocytes # 0.4 K/mcL (0.0-1.3); Monocytes % 4.5 %; Neutrophils # 7.4 K/mcL (1.6-8.9); Platelet Count 204 K/mcL (140-400); Red Blood Count 4.06 M/mcL (4.19-5.50); Red Cell Distribution Width 13.2 % (11.5-14.5); Segmented Neutrophils % 83.7 %; White Blood Count 8.8 K/mcL (4.3-11.1)
[2019-10-06 07:21] LABS: Adenovirus F 40/41 PCR Not detected (Not detect); Astrovirus PCR Not detected (Not detect); C.difficile Toxin A/B Gene PCR Not detected (Not detect); Campylobacter by PCR Not detected (Not detect); Cryptosporidium by PCR Not detected (Not detect); Cyclospora cayetanensis PCR Not detected (Not detect); E. coli O157 by PCR Not detected (Not detect); Entamoeba histolytica PCR Not detected (Not detect); Enteroaggregative E.coli(EAEC) Not detected (Not detect); Enteropathogenic E.coli(EPEC) Not detected (Not detect); Enterotoxigenic E.coli (ETEC) Not detected (Not detect); Giardia lamblia PCR Not detected (Not detect); Norovirus GI/GII PCR DETECTED (Not detect); Plesiomonas shigelloides PCR Not detected (Not detect); Rotavirus A PCR Not detected (Not detect); Salmonella PCR Not detected (Not detect); Sapovirus PCR Not detected (Not detect); Shig/EnteroinvasiveE coli EIEC Not detected (Not detect); Shigalike tox-prod E coli STEC Not detected (Not detect); Vibrio PCR Not detected (Not detect); Vibrio cholerae PCR Not detected (Not detect); Yersinia enterocolitica PCR Not detected (Not detect)
[2019-10-06 07:31] LABS: Alanine Aminotransferase 21 Units/L (7-52); Albumin 3.7 g/dL (3.5-5.7); Albumin/Globulin Ratio 1.8 (1.1-2.2); Alkaline Phosphatase 57 Units/L (34-104); Aspartate Amino Transferase 17 Units/L (13-39); BUN/Creatinine Ratio 19 (6-26); Bilirubin,Total 0.6 mg/dL (0.3-1.0); Blood Urea Nitrogen 14 mg/dL (8-23); Calcium 8.4 mg/dL (8.6-10.3); Carbon Dioxide 24 mEq/L (23-29); Chloride 106 mEq/L (98-107); Globulin 2.1 g/dL (2.4-3.5); Glucose 116 mg/dL (70-105); Magnesium 1.7 mg/dL (1.6-2.6); Osmolality,Calculated 285 (280-300); Sodium 137 mEq/L (136-145); Total Protein 5.8 g/dL (6.4-8.9); eGFR For African Americans > 60 (> 60); eGFR For Non-African Americans > 60 (> 60)
[2019-10-06 07:41] LABS: Thyroid Stimulating Hormone 0.984 mcIU/mL (0.340-5.600)
[2019-10-06 08:37] LABS: Estimated Average Glucose 177 mg/dl
[2019-10-06 11:44] VITALS: BP 109/64
[2019-10-06] MEDS ORDERED: *HR* Heparin 5,000 UNIT/ML VIAL SQ SCH (18:00)
== END 2019-10-06 15:07 | disposition home or self-care (01) ==
LOC: 3ANU 17:31 → EMEROOARM 17:31 → SUATTDRO 20:25 → 3ANU 21:00
PROVIDERS: ADMIT Internal Medicine; ATTEND Internal Medicine

== ENCOUNTER 2022-05-27 05:50 | Observation (INO) ==
[2022-05-27] MEDS ORDERED: Acetaminophen IV 1,000 MG/100 ML BAG IVPB ONE (06:10)
[2022-05-27] MEDS ORDERED: Famotidine 20 MG/2 ML VIAL IVP ONE (06:10)
[2022-05-27] MEDS ORDERED: Ringers Solution, Lactated 1,000 ML IVC SCH (06:15)
[2022-05-27] MEDS ORDERED: CeFAZolin Syr 2,000MG/20 ML 2,000 MG/20 ML SYRINGE IVPB ONE (06:15)
[2022-05-27] MEDS ORDERED: *HR* Succinylcholine 200 MG/10 ML VIAL IVP ONE (06:46)
[2022-05-27] MEDS ORDERED: Ondansetron 4 MG/2 ML VIAL ONE (06:46)
[2022-05-27] MEDS ORDERED: *HR* Midazolam HCl 2 MG/2 ML VIAL ONE (06:46)
[2022-05-27] MEDS ORDERED: Lidocaine -MPF 2% 2 ML VIAL ONE (06:46)
[2022-05-27] MEDS ORDERED: *HR* FentaNYL (PF) 100 MCG/2 ML VIAL ONE (06:46)
[2022-05-27] MEDS ORDERED: Tranexamic Acid 1,000 MG/10 ML VIAL ONE (06:47)
[2022-05-27] MEDS ORDERED: Ropivacaine/PF 0.5% 30 ML VIAL ONE (06:55)
[2022-05-27] MEDS ORDERED: ROPIVACAINE/PF/NS 0.25% 1 EACH SYRINGE INTRAART ONE (06:56)
[2022-05-27] MEDS ORDERED: TOTAL JOINT MIXTURE (100ML) INTRAART ONE (07:30)
[2022-05-27] MEDS ORDERED: Povidone-Iodine 45 ML, Sodium Chloride IRRigation 1,000 ML IR ONE (07:30)
[2022-05-27] MEDS ORDERED: *HR* Propofol 200 MG/20 ML VIAL IVP ONE (09:35)
[2022-05-27] MEDS ORDERED: Sennosides 8.6 MG TABLET PO PRN (12:43)
[2022-05-27] MEDS ORDERED: Ondansetron 4 MG/2 ML VIAL IVP PRN (12:43)
[2022-05-27] MEDS ORDERED: *HR* HYDROmorphone (PF) 1 MG/ML SYRINGE IVP PRN (12:43)
[2022-05-27] MEDS ORDERED: MOM Conc 10 ML UD.LIQ PO PRN (12:43)
[2022-05-27] MEDS ORDERED: *HR* Promethazine 25 MG/ML VIAL IM PRN (12:43)
[2022-05-27] MEDS ORDERED: Naloxone 0.4 MG/ML INJ IVP PRN (12:43)
[2022-05-27] MEDS: *HR* OxyCODONE Immed Rel 5 MG TABLET PO PRN ×2 (12:55→20:24)
[2022-05-27] MEDS: CeFAZolin 2 GM/120 ML BAG IVPB SCH ×2 (16:06→23:55)
[2022-05-27] MEDS: Ringers Solution, Lactated 1,000 ML IVC SCH (16:31)
[2022-05-27] MEDS: Ascorbic Acid 500 MG TABLET PO SCH (17:29)
[2022-05-27] MEDS: GLIMEPIRIDE 1 MG PO SCH (17:30)
[2022-05-27] MEDS: *HR* Metformin 500 MG TABLET PO SCH (17:30)
[2022-05-27] MEDS: lisinopriL 10 MG TABLET PO SCH (21:55)
[2022-05-28 04:43] LABS: Basophils % 0.2 %; Hemoglobin 10.5 g/dL (12.9-16.9); Immature Granulocytes % 0.3 % (0-4); Lymphocytes # 1.4 K/mcL (0.6-4.6); Lymphocytes % 12.8 %; Mean Corpuscular HGB Conc 32.8 g/dL (31.6-35.5); Mean Corpuscular Hemoglobin 32.2 pg (28.0-33.3); Mean Corpuscular Volume 98.2 fL (83.0-100.0); Mean Platelet Volume 9.4 fL (9.4-12.4); Monocytes # 1.1 K/mcL (0.0-1.3); Monocytes % 9.8 %; Neutrophils # 8.6 K/mcL (1.6-8.9); Platelet Count 223 K/mcL (140-400); Red Blood Count 3.26 M/mcL (4.19-5.50); Red Cell Distribution Width 13.4 % (11.5-14.5); Segmented Neutrophils % 76.9 %; White Blood Count 11.2 K/mcL (4.3-11.1)
[2022-05-28 05:04] LABS: BUN/Creatinine Ratio 18 (6-26); Blood Urea Nitrogen 12 mg/dL (8-23); Calcium 8.6 mg/dL (8.6-10.3); Carbon Dioxide 26 mEq/L (23-29); Chloride 103 mEq/L (98-107); Glucose 220 mg/dL (70-105); Osmolality,Calculated 289 (280-300); Sodium 136 mEq/L (136-145)
[2022-05-28] MEDS: *HR* Metformin 500 MG TABLET PO SCH ×2 (09:10→16:44)
[2022-05-28] MEDS: Multivit/Ca/Min/Fe/FA 1 TAB TABLET PO SCH (09:10)
[2022-05-28] MEDS: Ascorbic Acid 500 MG TABLET PO SCH ×2 (09:10→16:45)
[2022-05-28] MEDS: GLIMEPIRIDE 1 MG PO SCH ×2 (09:11→16:45)
[2022-05-28] MEDS: (Ezetimibe [Zetia] 10 MG Tablet) PO SCH (09:11)
[2022-05-28] MEDS: Aspirin Enteric Coated 325 MG Tablet PO SCH ×2 (10:22→20:01)
[2022-05-28] MEDS: *HR* Pioglitazone 30 MG TABLET PO SCH (10:27)
[2022-05-28] MEDS: *HR* OxyCODONE Immed Rel 5 MG TABLET PO PRN ×2 (13:34→18:51)
[2022-05-28] MEDS: lisinopriL 10 MG TABLET PO SCH (20:01)
[2022-05-29] MEDS: *HR* OxyCODONE Immed Rel 5 MG TABLET PO PRN ×5 (00:14→18:20)
[2022-05-29 07:22] LABS: Basophils # 0.1 K/mcL (0.0-0.2); Basophils % 0.6 %; Eosinophils # 0.4 K/mcL (0.0-0.6); Eosinophils % 4.3 %; Hematocrit 30.8 % (37.5-50.1); Hemoglobin 10.1 g/dL (12.9-16.9); Immature Granulocytes % 0.3 % (0-4); Lymphocytes # 2.2 K/mcL (0.6-4.6); Lymphocytes % 23.6 %; Mean Corpuscular HGB Conc 32.8 g/dL (31.6-35.5); Mean Corpuscular Hemoglobin 32.5 pg (28.0-33.3); Mean Platelet Volume 9.4 fL (9.4-12.4); Monocytes # 1.1 K/mcL (0.0-1.3); Monocytes % 11.4 %; Neutrophils # 5.6 K/mcL (1.6-8.9); Platelet Count 208 K/mcL (140-400); Red Blood Count 3.11 M/mcL (4.19-5.50); Red Cell Distribution Width 13.9 % (11.5-14.5); Segmented Neutrophils % 59.8 %; White Blood Count 9.4 K/mcL (4.3-11.1)
[2022-05-29 07:42] LABS: BUN/Creatinine Ratio 13 (6-26); Blood Urea Nitrogen 9 mg/dL (8-23); Calcium 8.1 mg/dL (8.6-10.3); Carbon Dioxide 30 mEq/L (23-29); Chloride 103 mEq/L (98-107); Glucose 145 mg/dL (70-105); Osmolality,Calculated 281 (280-300); Sodium 135 mEq/L (136-145)
[2022-05-29] MEDS: Ringers Solution, Lactated 1,000 ML IVC SCH ×3 (07:49→19:27)
[2022-05-29] MEDS: Multivit/Ca/Min/Fe/FA 1 TAB TABLET PO SCH (09:58)
[2022-05-29] MEDS: Ascorbic Acid 500 MG TABLET PO SCH ×2 (09:58→16:07)
[2022-05-29] MEDS: Aspirin Enteric Coated 325 MG Tablet PO SCH ×2 (09:58→20:01)
[2022-05-29] MEDS: GLIMEPIRIDE 1 MG PO SCH ×2 (09:59→16:08)
[2022-05-29] MEDS: *HR* Pioglitazone 30 MG TABLET PO SCH (09:59)
[2022-05-29] MEDS: (Ezetimibe [Zetia] 10 MG Tablet) PO SCH (09:59)
[2022-05-29] MEDS: *HR* Metformin 500 MG TABLET PO SCH ×2 (10:01→16:07)
[2022-05-29] MEDS: lisinopriL 10 MG TABLET PO SCH (20:01)
[2022-05-30] MEDS: Aspirin Enteric Coated 325 MG Tablet PO SCH (08:34)
[2022-05-30] MEDS: Ascorbic Acid 500 MG TABLET PO SCH (08:34)
[2022-05-30] MEDS: *HR* Metformin 500 MG TABLET PO SCH (08:35)
[2022-05-30] MEDS: Multivit/Ca/Min/Fe/FA 1 TAB TABLET PO SCH (08:35)
[2022-05-30] MEDS: GLIMEPIRIDE 1 MG PO SCH (08:36)
[2022-05-30] MEDS: (Ezetimibe [Zetia] 10 MG Tablet) PO SCH (08:37)
[2022-05-30] MEDS: *HR* Pioglitazone 30 MG TABLET PO SCH (08:45)
[2022-05-30] MEDS: *HR* OxyCODONE Immed Rel 5 MG TABLET PO PRN ×2 (08:53→14:19)
[2022-05-30 10:34] VITALS: BP 153/85; PULSE 87; TEMP 97.6; O2SAT 98
== END 2022-05-30 14:45 | disposition home health service (06) ==
LOC: 4WAOSI 05:50 → SDCAOSI 05:50 → 4WAOSI 14:05
PROVIDERS: ADMIT Orthopaedic Surgery; ATTEND Orthopaedic Surgery